=== PATIENT | female | born 1960 | race American Indian/Alaskan Native ===

== ENCOUNTER 2018-12-18 15:55 | Outpatient (CLI) | payer OTHER ==
--- NOTE | 2018-12-18 16:22 | Mammography Report ---
BILATERAL DIGITAL SCREENING MAMMOGRAM with CAD: 12/18/18 CLINICAL: Routine screening. COMPARISON:None available. However, a prior mammogram was apparently done at [facility]. FINDINGS: The breasts are heterogeneously dense, which may obscure small masses. Right asymmetries require comparison with a prior mammogram or additional imaging.No architectural distortion or suspicious calcifications.The left breast is negative. IMPRESSION: Right asymmetries requiring further evaluation. BI-RADS CATEGORY: 0 -- Additional Evaluation Required RECOMMENDATION: Comparison with a previous mammogram. We will attempt to obtain a prior mammogram for comparison. If we do not obtain a prior mammogram within 30 days, a revised report will be issued recommending a recall for additional imaging. Please be advised that the patient should not schedule an appointment for return until adequate time (at least 2 weeks) has passed for us to obtain the prior mammogram. ACR BI-RADS MAMMOGRAPHIC CODES: 0 = Needs additional imaging evaluation; 1 = Negative; 2 = Benign; 3 = Probably benign; 4 = Suspicious; 5 = Malignant; 6 = Known biopsy-proven malignancy COMMENT: 1. Dense breast tissue, i.e., adenosis, fibrocystic changes, etc., may obscure an underlying neoplasm. 2. Approximately 10% of cancers are not detected with mammography. 3. A negative mammography report should not delay biopsy if a clinically suspicious mass is present. COMMENT: Patient follow-up letters are generated via our [email or web address] application.
== END 2018-12-18 15:56 | disposition home or self-care (01) ==
LOC: SPVWC 15:55
PROVIDERS: ATTEND Obstetrics & Gynecology
DX: Z12.31 Encounter for screening mammogram for malignant neoplasm of breast (principal)
CPT/HCPCS: 77067

== ENCOUNTER 2019-05-02 09:17 | Outpatient (CLI) | payer OTHER ==
--- NOTE | 2019-05-02 11:04 | Ultrasound Report ---
BILATERAL DIGITAL DIAGNOSTIC MAMMOGRAM WITH CAD RIGHT COMPLETE BREAST ULTRASOUND INDICATION: Recall to evaluate bilateral calcifications and right asymmetries on recent screening julia mogram. TECHNIQUE: Digital bilateral mammographic imaging was performed. Complete ultrasound of all four (4) quadrants was performed. COMPARISON: 12/18/2018 FINDINGS: Breast Density: The breasts are heterogeneously dense, which may obscure small masses. Bilateral lateral medial and spot magnification views of calcifications were performed. A group of am orphous right upper outer calcifications are probably benign. The calcifications have an orientation on the CC mag view and suggest that they may be within a nodule. No layering on the lateral view. A g roup of mostly punctate calcifications in the upper outer left breast are also probably benign. No as sociated mass or architectural distortion. Ultrasound Findings: Complete sonographic evlauation of all 4 quadrants and retroareolar region was p erformed. An oval solid hypoechoic smooth mass at 6:30 o'clock 6 cm from the nipple measures 1.4 x 0.4 x 1.2 cm. It correlates with a dominant mammographic asymmetry. A few scattered cysts and no othe r solid mass. IMPRESSION: 1. A solid 1.4 cm right breast mass at 6:30 o'clock 6 cm from the nipple. Recommend ultrasound-guided needle biopsy to exclude malignancy. 2. Probably benign bilateral calcifications. Recommend 6 month follow-up diagnostic mammogram with ma gnification views. I discussed the findings and my recommendations with the patient at the time of the exam. BI-RADS Category 4: Suspicious for Malignancy. A "normal" or negative report should not discourage follow up or biopsy of a clinically significant f inding. A written summary of these findings will be mailed to the patient. The patient will be entered into a mammography reporting system which will generate a reminder letter for the patient's next appointmen t at the appropriate interval. FURTHER INFORMATION: According to the [employer], yearly mammograms are recommend ed starting at age 40 and continuing as long as a woman is in good health. Breast MRI is recommended for women with an approximately 20-25% or greater lifetime risk of breast cancer, including women wi th a strong family history of breast or ovarian cancer and women who have been treated for Hodgkin's disease. Signer Name: Jerry Calles MD Signed: 05/02/2019 11:00 AM Workstation Name: [id number]
== END 2019-05-02 09:18 | disposition home or self-care (01) ==
LOC: SPVWC 09:17
PROVIDERS: ATTEND Obstetrics & Gynecology
DX: N63.13 Unspecified lump in the right breast, lower outer quadrant (principal)
CPT/HCPCS: 77066

== ENCOUNTER 2019-06-05 13:00 | Outpatient (CLI) | payer OTHER ==
--- NOTE | 2019-06-05 15:06 | Ultrasound Report ---
ULTRASOUND-GUIDED CYST ASPIRATION RIGHT BREAST The procedure was explained to the patient and informed consent obtained. PROCEDURE: Ultrasound demonstrated the previously identified lesion at 6:00 6 cm from the nipple. It appeared to be anechoic and thought to be a cyst. Using ultrasound guidance, 1% lidocaine with epinep hrine for anesthesia and an 18-gauge needle, the cyst was aspirated and showed complete collapse. Basia roximately 1 cc of cloudy yellow fluid was removed and was discarded. No specimen was sent to the lab . The patient tolerated the procedure well and there were no apparent complications. IMPRESSION: Uncomplicated ultrasound-guided needle aspiration of a benign cyst at 6:00. Recommend rou jacqueline mammographic screening. Signer Name: Jerry Calles MD Signed: 06/05/2019 3:02 PM Workstation Name: [id number]
== END 2019-06-05 13:01 | disposition home or self-care (01) ==
LOC: SPVWC 13:00
PROVIDERS: ATTEND Obstetrics & Gynecology
DX: N63.13 Unspecified lump in the right breast, lower outer quadrant (principal)

== ENCOUNTER 2019-12-20 10:48 | Outpatient (CLI) | payer OTHER ==
--- NOTE | 2019-12-20 12:57 | Mammography Report ---
BILATERAL DIGITAL SCREENING MAMMOGRAM WITH CAD HISTORY: SCREENING MAMMOGRAM TECHNIQUE: Routine digital mammographic imaging performed. This examination was interpreted with levon ramirez benefit of Computer-aided Detection analysis. COMPARISON: 12/18/2018. FINDINGS: Breast Density: heterogeneously dense breast parenchymal pattern which somewhat lessens the sensitivi ty of the evaluation. Digital CC and MLO views demonstrate no mammographic evidence of malignancy. A few scattered benign- appearing calcifications are stable. IMPRESSION: No mammographic evidence of malignancy. If the clinical examination remains stable, recommend bilate ral mammogram in approximately one year. BIRADS 2: Benign Finding(s). FURTHER INFORMATION: According to the [employer], yearly mammograms are recommend ed starting at age 40 and continuing as long as a woman is in good health. Clinical Breast Exams shou ld be part of a periodic health exam-about every 3 years for women in their 20s and 30s and every yea r for women 40 and over. Breast self exam is an option for women starting in their 20s. Any breast ch melanie noted on a breast self exam should be reported promptly to the patient's healthcare provider. Br east MRI is recommended for women with an approximately 20-25% or greater lifetime risk of breast can cer, including women with a strong family history of breast or ovarian cancer and women who have been treated for Hodgkin's disease. A negative Mammography report should not discourage follow up or biopsy of a clinically significant f inding and/or abnormality. Dense breast tissue may obscure small neoplasms. The patient will be entered into a reminder system with a target due date for the next screening mamm ogram. Signer Name: Kristian Vogel MD Signed: 12/20/2019 12:52 PM Workstation Name: [id number]
== END 2019-12-20 10:49 | disposition home or self-care (01) ==
LOC: SPVWC 10:48
PROVIDERS: ATTEND Obstetrics & Gynecology
DX: Z12.31 Encounter for screening mammogram for malignant neoplasm of breast (principal)
CPT/HCPCS: 77067

== ENCOUNTER 2020-12-30 12:52 | Outpatient (CLI) | payer OTHER ==
--- NOTE | 2020-12-30 13:53 | Mammography Report ---
BILATERAL DIGITAL SCREENING MAMMOGRAM WITH CAD HISTORY: Screening mammogram. TECHNIQUE: Routine digital mammographic imaging performed. This examination was interpreted with levon ramirez benefit of Computer-aided Detection analysis. COMPARISON: 12/20/2019, 06/05/2019, 05/02/2019, 12/18/2018. FINDINGS: Breast Density: heterogeneously dense breast parenchymal pattern which somewhat lessens the sensitivi ty of the evaluation. Digital CC and MLO views demonstrate no new mammographic evidence of malignancy. Right medial and fa r posterior inferior breast partially circumscribed oval lesions appear not significantly changed, li uriel corresponding with cysts which were noted previously. Long-term stability would support a benign etiology. IMPRESSION: No mammographic evidence of malignancy. If the clinical examination remains stable, recommend bilate ral mammogram in approximately one year. BIRADS 2: Benign Finding(s). FURTHER INFORMATION: According to the [employer], yearly mammograms are recommend ed starting at age 40 and continuing as long as a woman is in good health. Clinical Breast Exams shou ld be part of a periodic health exam-about every 3 years for women in their 20s and 30s and every yea r for women 40 and over. Breast self exam is an option for women starting in their 20s. Any breast ch melanie noted on a breast self exam should be reported promptly to the patient's healthcare provider. Br east MRI is recommended for women with an approximately 20-25% or greater lifetime risk of breast can cer, including women with a strong family history of breast or ovarian cancer and women who have been treated for Hodgkin's disease. A negative Mammography report should not discourage follow up or biopsy of a clinically significant f inding and/or abnormality. Dense breast tissue may obscure small neoplasms. The patient will be entered into a reminder system with a target due date for the next screening mamm ogram. Signer Name: Kristian Vogel MD Signed: 12/30/2020 1:49 PM Workstation Name: [id number]
== END 2020-12-30 12:53 | disposition home or self-care (01) ==
LOC: SPVWC 12:52
PROVIDERS: ATTEND Obstetrics & Gynecology
DX: Z12.31 Encounter for screening mammogram for malignant neoplasm of breast (principal); N64.89 Other specified disorders of breast
CPT/HCPCS: 77067

== ENCOUNTER 2022-01-19 11:18 | Outpatient (CLI) | payer OTHER | END 2022-01-19 11:19 | disposition home or self-care (01) | LOC: SPVWC 11:18 | PROVIDERS: ATTEND Obstetrics & Gynecology | DX: Z12.31 Encounter for screening mammogram for malignant neoplasm of breast (principal); N64.89 Other specified disorders of breast | CPT/HCPCS: 77067 ==